=== PATIENT | male | born 1955 | race Caucasian/White ===

== ENCOUNTER 2017-10-21 11:29 | Day surgery (SDC) | payer OTHER ==
[~2017-10-21] VITALS: Ht 180.3 cm; Wt 137.6 kg
[~2017-10-21 11:29] MED LIST: ALPR.5; Omeprazole20 M1; SPIR25; Tenormin25 MG; ZESTRIL40 MG
[2017-10-21] MEDS ORDERED: Tizanidine HCl2 MG (11:55)
[2017-10-21] MEDS ORDERED: COMBIVENT RESPIM4 GM IH (11:55)
[2017-10-21] MEDS ORDERED: Adult Low Dose81 MG PO (11:56)
== END 2017-10-21 14:11 | disposition home or self-care (01) ==
LOC: ORSCSDS 11:29
PROVIDERS: Internal Medicine Gastroenterology
PROC: 0DBL8ZX Excision of Transverse Colon, Via Natural or Artificial Opening Endoscopic, Diagnostic (ICD-10-PCS; principal; 2017-10-21 13:00)
PROC: 0DBK8ZX Excision of Ascending Colon, Via Natural or Artificial Opening Endoscopic, Diagnostic (ICD-10-PCS; principal; 2017-10-21 13:00)
PROC: 0DB88ZX Excision of Small Intestine, Via Natural or Artificial Opening Endoscopic, Diagnostic (ICD-10-PCS; principal; 2017-10-21 13:00)
PROC: 0DB68ZX Excision of Stomach, Via Natural or Artificial Opening Endoscopic, Diagnostic (ICD-10-PCS; principal; 2017-10-21 13:00)
PROC: 0DB58ZX Excision of Esophagus, Via Natural or Artificial Opening Endoscopic, Diagnostic (ICD-10-PCS; principal; 2017-10-21 13:00)
DX: K92.1 Melena (principal); D12.2 Benign neoplasm of ascending colon; D12.3 Benign neoplasm of transverse colon; K29.80 Duodenitis without bleeding; K20.9 Esophagitis, unspecified; K29.70 Gastritis, unspecified, without bleeding; R10.11 Right upper quadrant pain; I10 Essential (primary) hypertension; I25.2 Old myocardial infarction; G47.33 Obstructive sleep apnea (adult) (pediatric); E66.01 Morbid (severe) obesity due to excess calories; Z68.41 Body mass index [BMI] 40.0-44.9, adult; Z79.899 Other long term (current) drug therapy
CPT/HCPCS: 88305; 88342; J7040; J7120

== ENCOUNTER 2018-02-07 19:53 | Inpatient (IN) | payer SELFPAY ==
[~2018-02-07] VITALS: Ht 180.3 cm; Wt 95.2 kg
[~2018-02-07 19:53] MED LIST changes: +Adult Low Dose81 MG PO; +COMBIVENT RESPIM4 GM IH; +Tizanidine HCl2 MG
[2018-02-07 20:15] LABS: BASOPHILS ABSOLUTE AUTO 0.06 K/mm3 (0.00-0.23); BASOPHILS PERCENT AUTO 1 % (0-2); EOSINOPHILS ABSOLUTE AUTO 0.23 K/mm3 (0.00-0.68); EOSINOPHILS PERCENT AUTO 2 % (0-6); Hematocrit 39.5 % (37.0-53.0); IMMATURE GRAN ABSOLUTE AUTO 0.03 K/mm3 (0.00-0.10); IMMATURE GRAN PERCENT AUTO 0 % (0-1); LYMPHOCYTES ABSOLUTE AUTO 3.48 K/mm3 (0.84-5.20); LYMPHOCYTES PERCENT AUTO 34 % (21-46); MONOCYTES ABSOLUTE AUTO 1.14 K/mm3 (0.16-1.47); MONOCYTES PERCENT AUTO 11 % (4-13); Mean Corpuscular HGB Conc 32.9 g/dL (31.5-36.5); Mean Corpuscular Volume 85 fL (80-100); Mean Platelet Volume 10.7 fL (9.1-12.4); NEUTROPHILS ABSOLUTE AUTO 5.28 K/mm3 (1.96-9.15); NEUTROPHILS PERCENT AUTO 52 % (41-73); Platelet Count 277 K/mm3 (150-400); RDW Coefficient Variation 14.4 % (11.7-14.2); RDW Standard Deviation 44.1 fL (35.1-46.3); Red Blood Cell Count 4.65 M/mm3 (4.30-5.90); White Blood Cell Count 10.22 K/mm3 (4.00-11.30)
[2018-02-07] MEDS ORDERED: ALBU3IS INH (20:21)
[2018-02-07] MEDS ORDERED: CLOP75 PO (20:22)
[2018-02-07] MEDS ORDERED: ATEN50 PO (20:22)
[2018-02-07] MEDS ORDERED: CYCL10 PO (20:22)
[2018-02-07] MEDS ORDERED: AMLO5 PO (20:22)
[2018-02-07] MEDS ORDERED: LISI20 PO (20:23)
[2018-02-07] MEDS ORDERED: SPIR25 PO (20:23)
[2018-02-07] MEDS ORDERED: Omeprazole20 M1 PO (20:23)
[2018-02-07] MEDS ORDERED: TAMS.4ER PO (20:23)
[2018-02-07] MEDS ORDERED: ASPI325 PO (20:23)
[2018-02-07] MEDS ORDERED: Fish Oil 10001000 MG PO (20:24)
[2018-02-07 20:27] LABS: International Normalized Ratio 0.98; Prothrombin Time Results 10.1 Sec (9.7-11.5)
[2018-02-07 20:34] LABS: Alanine Aminotransfer (ALT/SGP 102 U/L (12-78); Albumin, Blood 3.6 g/dL (3.4-5.0); Alk Phos 98 U/L (50-136); Anion Gap 9 mmol/L (6-16); Aspartate Aminotrans (AST/SGOT 68 U/L (12-37); Bilirubin, Total 0.4 mg/dL (0.1-1.0); Blood Urea Nitrogen 16 mg/dL (8-24); Bun/Creatinine Ratio 19.1 (12.0-20.0); CO2, Blood 24 mmol/L (21-32); Calcium, Blood 8.2 mg/dL (8.5-10.1); Chloride, Blood 107 mmol/L (98-108); Creatinine, Blood 0.84 mg/dL (0.60-1.20); Globulin, Blood 3.7 g/dL (2.2-4.0); Glomerular Filtration Rate >60 (60-); Glucose, Blood 168 mg/dL (70-99); Potassium, Blood 3.7 mmol/L (3.5-5.5); Sodium, Blood 140 mmol/L (136-145); Total Protein, Blood 7.3 g/dL (6.4-8.2)
[2018-02-07] MEDS ORDERED: Zofran Odt8 MG SL (22:04)
[2018-02-07] MEDS ORDERED: LOPE2C PO (22:04)
[2018-02-08] MEDS ORDERED: PROM25 PO (00:26)
[2018-02-08] MEDS ORDERED: ALPR1 PO (00:28)
[2018-02-08] MEDS ORDERED: NITR.4SL SL (00:31)
[2018-02-08 02:33] LABS: Source, Urine Clean Catch
[2018-02-08 02:51] LABS: Bilirubin, Urine Neg (Neg); Blood, Urine Neg (Neg); Glucose Qualitative, Urine Neg (Neg); Ketones, Urine Neg (Neg); Leukocyte Esterase, Urine Neg (Neg); Nitrite, Urine Neg (Neg); Protein, Urine Neg (Neg); Specific Gravity, Urine 1.015 (1.003-1.022); Urobilinogen, Urine NORM (Normal)
[2018-02-08 02:53] LABS: Appearance, Urine Clear (Clear); Color, Urine Yellow (P-Yellow)
[2018-02-08 05:25] LABS: BASOPHILS ABSOLUTE AUTO 0.09 K/mm3 (0.00-0.23); BASOPHILS PERCENT AUTO 1 % (0-2); EOSINOPHILS ABSOLUTE AUTO 0.27 K/mm3 (0.00-0.68); EOSINOPHILS PERCENT AUTO 3 % (0-6); Hematocrit 40.4 % (37.0-53.0); Hemoglobin 12.9 g/dL (13.5-17.5); IMMATURE GRAN ABSOLUTE AUTO 0.03 K/mm3 (0.00-0.10); IMMATURE GRAN PERCENT AUTO 0 % (0-1); LYMPHOCYTES ABSOLUTE AUTO 3.23 K/mm3 (0.84-5.20); LYMPHOCYTES PERCENT AUTO 38 % (21-46); MONOCYTES ABSOLUTE AUTO 0.76 K/mm3 (0.16-1.47); MONOCYTES PERCENT AUTO 9 % (4-13); Mean Corpuscular HGB 27.3 pg (26.0-34.0); Mean Corpuscular HGB Conc 31.9 g/dL (31.5-36.5); Mean Corpuscular Volume 86 fL (80-100); Mean Platelet Volume 10.7 fL (9.1-12.4); NEUTROPHILS ABSOLUTE AUTO 4.05 K/mm3 (1.96-9.15); NEUTROPHILS PERCENT AUTO 48 % (41-73); Platelet Count 245 K/mm3 (150-400); RDW Coefficient Variation 14.2 % (11.7-14.2); RDW Standard Deviation 44.9 fL (35.1-46.3); Red Blood Cell Count 4.72 M/mm3 (4.30-5.90); White Blood Cell Count 8.43 K/mm3 (4.00-11.30)
[2018-02-08 05:39] LABS: Anion Gap 11 mmol/L (6-16); Blood Urea Nitrogen 16 mg/dL (8-24); Bun/Creatinine Ratio 20.4 (12.0-20.0); CO2, Blood 25 mmol/L (21-32); Calcium, Blood 8.1 mg/dL (8.5-10.1); Chloride, Blood 106 mmol/L (98-108); Creatinine, Blood 0.78 mg/dL (0.60-1.20); Glomerular Filtration Rate >60 (60-); Glucose, Blood 109 mg/dL (70-99); Potassium, Blood 3.8 mmol/L (3.5-5.5); Sodium, Blood 142 mmol/L (136-145)
[2018-02-08] MEDS ORDERED: Esgic Tablet1 EACH PO (18:17)
== END 2018-02-08 18:45 | disposition home or self-care (01) | DRG 65 ==
LOC: ER 19:53 → MEDS 22:26
PROVIDERS: Emergency Medicine; Nurse Practitioner Acute Care
DX: I63.9 Cerebral infarction, unspecified (principal); G45.9 Transient cerebral ischemic attack, unspecified; G61.0 Guillain-Barre syndrome; N40.0 Benign prostatic hyperplasia without lower urinary tract symptoms; G43.109 Migraine with aura, not intractable, without status migrainosus; I25.10 Atherosclerotic heart disease of native coronary artery without angina pectoris; J44.9 Chronic obstructive pulmonary disease, unspecified; R20.0 Anesthesia of skin; I25.2 Old myocardial infarction; Z95.5 Presence of coronary angioplasty implant and graft; G47.30 Sleep apnea, unspecified; K75.81 Nonalcoholic steatohepatitis (NASH); Z79.02 Long term (current) use of antithrombotics/antiplatelets; Z77.22 Contact with and (suspected) exposure to environmental tobacco smoke (acute) (chronic); I45.10 Unspecified right bundle-branch block; R26.89 Other abnormalities of gait and mobility
CPT/HCPCS: 36415; 70450; 71046; 80048; 80053; 81003; 82607; 82746; 84443; 85025; 85610; 93005; 93010; 93306; 93880; 94760; 97161; 99285-25; G8978; G8979; G8980; J1650; J1885

== ENCOUNTER 2018-02-22 19:00 | Emergency (ER) | payer SELFPAY ==
[~2018-02-22] VITALS: Ht 180.3 cm; Wt 140.6 kg
[~2018-02-22 19:00] MED LIST changes: +ALBU3IS INH; +ALPR1 PO; +AMLO5 PO; +ASPI325 PO; +ATEN50 PO; +CLOP75 PO; +CYCL10 PO; +Esgic Tablet1 EACH PO; +Fish Oil 10001000 MG PO; +LISI20 PO; +LOPE2C PO; +NITR.4SL SL; +Omeprazole20 M1 PO; +PROM25 PO; +SPIR25 PO; +TAMS.4ER PO; +Zofran Odt8 MG SL
[2018-02-22 19:32] LABS: BASOPHILS ABSOLUTE AUTO 0.07 K/mm3 (0.00-0.23); BASOPHILS PERCENT AUTO 1 % (0-2); EOSINOPHILS ABSOLUTE AUTO 0.23 K/mm3 (0.00-0.68); EOSINOPHILS PERCENT AUTO 3 % (0-6); Hemoglobin 13.2 g/dL (13.5-17.5); IMMATURE GRAN ABSOLUTE AUTO 0.03 K/mm3 (0.00-0.10); IMMATURE GRAN PERCENT AUTO 0 % (0-1); LYMPHOCYTES ABSOLUTE AUTO 3.05 K/mm3 (0.84-5.20); LYMPHOCYTES PERCENT AUTO 33 % (21-46); MONOCYTES ABSOLUTE AUTO 0.89 K/mm3 (0.16-1.47); MONOCYTES PERCENT AUTO 10 % (4-13); Mean Corpuscular HGB 27.8 pg (26.0-34.0); Mean Corpuscular HGB Conc 32.2 g/dL (31.5-36.5); Mean Corpuscular Volume 86 fL (80-100); Mean Platelet Volume 10.3 fL (9.1-12.4); NEUTROPHILS ABSOLUTE AUTO 5.05 K/mm3 (1.96-9.15); NEUTROPHILS PERCENT AUTO 54 % (41-73); Platelet Count 237 K/mm3 (150-400); RDW Coefficient Variation 14.1 % (11.7-14.2); RDW Standard Deviation 44.7 fL (35.1-46.3); Red Blood Cell Count 4.75 M/mm3 (4.30-5.90); White Blood Cell Count 9.32 K/mm3 (4.00-11.30)
[2018-02-22 19:42] LABS: Alanine Aminotransfer (ALT/SGP 109 U/L (12-78); Albumin, Blood 3.6 g/dL (3.4-5.0); Alk Phos 100 U/L (50-136); Anion Gap 9 mmol/L (6-16); Aspartate Aminotrans (AST/SGOT 79 U/L (12-37); Bilirubin, Total 0.2 mg/dL (0.1-1.0); Blood Urea Nitrogen 14 mg/dL (8-24); Bun/Creatinine Ratio 16.1 (12.0-20.0); CO2, Blood 23 mmol/L (21-32); Calcium, Blood 7.9 mg/dL (8.5-10.1); Chloride, Blood 106 mmol/L (98-108); Creatinine, Blood 0.87 mg/dL (0.60-1.20); Globulin, Blood 3.6 g/dL (2.2-4.0); Glomerular Filtration Rate >60 (60-); Glucose, Blood 179 mg/dL (70-99); Potassium, Blood 3.5 mmol/L (3.5-5.5); Sodium, Blood 138 mmol/L (136-145); Total Protein, Blood 7.2 g/dL (6.4-8.2)
== END 2018-02-22 21:01 | disposition home or self-care (01) ==
LOC: ER 19:00
PROVIDERS: Internal Medicine
DX: G43.909 Migraine, unspecified, not intractable, without status migrainosus (principal); I10 Essential (primary) hypertension; J44.9 Chronic obstructive pulmonary disease, unspecified; Z88.1 Allergy status to other antibiotic agents; Z88.7 Allergy status to serum and vaccine; Z88.5 Allergy status to narcotic agent; Z88.8 Allergy status to other drugs, medicaments and biological substances; Z79.899 Other long term (current) drug therapy; Z79.01 Long term (current) use of anticoagulants
CPT/HCPCS: 70450; 71045; 80053; 81000; 82947; 85025; 93005; 93010; 96374; 99285-25; J0780; J1885

== ENCOUNTER 2018-07-02 13:16 | Day surgery (SDC) | payer OTHER ==
[~2018-07-02] VITALS: Ht 180.3 cm; Wt 139.5 kg
[~2018-07-02 13:16] MED LIST changes: +ALPR.5CR PO; +OMEPRAZOLE20 MG PO; +ZESTRIL40 MG PO; +Zanaflex2 M1
[2018-07-02] MEDS ORDERED: CYCL10 PO (14:27)
[2018-07-02] MEDS ORDERED: Aspirin EC81 MG PO (14:27)
[2018-07-02] MEDS ORDERED: POTA10T PO (14:27)
[2018-07-02] MEDS ORDERED: FURO20 PO (14:27)
[2018-07-02] MEDS ORDERED: CLOP75 PO (14:28)
== END 2018-07-02 15:35 | disposition home or self-care (01) ==
LOC: ORSCSDS 13:16
PROVIDERS: Ophthalmology
PROC: 08RJ3JZ Replacement of Right Lens with Synthetic Substitute, Percutaneous Approach (ICD-10-PCS; principal; 2018-07-02 15:00)
DX: H25.11 Age-related nuclear cataract, right eye (principal); H21.81 Floppy iris syndrome; I25.10 Atherosclerotic heart disease of native coronary artery without angina pectoris; G47.33 Obstructive sleep apnea (adult) (pediatric); J44.9 Chronic obstructive pulmonary disease, unspecified; Z86.73 Personal history of transient ischemic attack (TIA), and cerebral infarction without residual deficits; K21.9 Gastro-esophageal reflux disease without esophagitis; Z79.899 Other long term (current) drug therapy; Z79.82 Long term (current) use of aspirin; E66.01 Morbid (severe) obesity due to excess calories; Z68.41 Body mass index [BMI] 40.0-44.9, adult
CPT/HCPCS: J2001; J2250; J3010; J7120; V2632

== ENCOUNTER 2019-07-20 09:40 | Day surgery (SDC) | payer OTHER ==
[~2019-07-20] VITALS: Ht 180.3 cm; Wt 141.2 kg
[~2019-07-20 09:40] MED LIST changes: +ACET500 PO; +ALBU2.5V5 INH; +ALBU90OI6 INH; +ALPR.5 PO; +AMLOATOR PO; +ASPI81CH PO; +Aldactone25 MG PO; +Aspirin EC81 MG PO; +Atenolol50 MG PO; +FURO20 PO; +IRON PO; +NITR2.5ER PO; +OLOP.1OPSO BOTHEYES; +OMEP20ER PO; +POTA10T PO; +STIOLTO RESPIMAT4 GM INH; +STIOLTO RESPIMAT4 GM PO; +VITAMIN D31 ML PO; +Vitamin C100 M1 PO; +ZESTRIL40 M1 PO
[2019-07-20] MEDS ORDERED: ENOX80I SC (11:05)
--- NOTE | 2019-07-20 11:19 | NUR ---
Ambulatory in Day Surgery. Surgical site prepped with 2% Chlorhexidine cloth wipe. History, Chart, Medications and Allergies reviewed before start of procedure.Lungs clear T/O to Auscultation. Patient confirms NPO status and agrees with scheduled surgery. Pre-Op teaching done. Pt verbalizes understanding. Patient States Post-Procedure ride home has been arranged. Patient reports completing Chlorhexadine shower X2 prior to admission to hospital.
--- NOTE | 2019-07-20 18:26 | NUR ---
RECIEVED REPORT FROM KYLAH GEORGES AT 1820. PATIENT TO TRANSFER TO ROOM 221.
--- NOTE | 2019-07-21 06:20 | NUR ---
SHIFT SUMMARY HAS RESTED THIS SHIFT. PAIN MANAGED WITH PRN DILAUDID GIVEN X1 THIS SHIFT. LAP SITE DRESSINGS ARE C/D/I, HAS BEEN ABLE TO AMBULATE TO BATHROOM WITH STANDBY ASSIST. DENIES FURTHER NEEDS OR WANTS AT THIS TIME. SAFETY MEASURES IN PLACE. WILL GIVE HAND OFF TO ONCOMING SHIFT USING SBAR DURING BEDSIDE REPORT.
--- NOTE | 2019-07-21 17:04 | NUR ---
SHIFT SUMMARY PT A&OX4, VSS, POD1 CHIOL. PAIN TREATED WITH 0.5 DILAUDID X1; PT STAYING FOR PAIN MANAGEMENT R/T INABILITY TO TAKE ORAL OPIATES. ESTEFANÍA PO, DENIES N&V. AMBULATING HALLWAYS. VOIDING. REP PASSING FLATUS, DENIES BM. WILL REPORT TO ONCOMING NOC RN.
--- NOTE | 2019-07-22 04:13 | NUR ---
SHIFT SUMMARY PT IS A/O X4 AND IND. AMBULATES FREQUENTLY; HAS AMBULATED MULT TIMES IN HALLWAY. LAP SITES CDI. PAIN MANAGED WITH 0.5MG DILAUDED PER ORDERS. PT HAS BEEN RESTING QUIETLY DURING THE NIGHT. TOLERATING PO INTAKE AND VOIDING. ASSISTED WITH ADL'S PRN.
--- NOTE | 2019-07-22 11:22 | NUR ---
DISCHARGE SUMMARY PT WALKED OFF FLOOR WITH ALL PERSONAL POSSESSIONS INCLUDING DC PACKET. DC INSTRUCTIONS PROVIDED. PT REP UNDERSTANDING THOSE INSTRUCTIONS INCLUDING FU WITH SURGEON X2WKS, LEAVE STERIS IN PLACE, OK TO SHOWER, NO LIFTING GREATER THAN 10 LBS. 2 IVS DC'D.
[2019-07-23] MEDS ORDERED: METPRE4DP PO (10:14)
== END 2019-07-22 11:18 | disposition home or self-care (01) ==
LOC: ORSCMMR 09:40 → ORD 11:30 → ORSCMMR 11:30 → SURS 18:30 → ORSCMMR 07-22 11:18
PROVIDERS: Surgery
PROC: 0DNU4ZZ Release Omentum, Percutaneous Endoscopic Approach (ICD-10-PCS; principal; 2019-07-20 11:30)
PROC: 8E0W4CZ Robotic Assisted Procedure of Trunk Region, Percutaneous Endoscopic Approach (ICD-10-PCS; principal; 2019-07-20 11:30)
PROC: 0FB04ZX Excision of Liver, Percutaneous Endoscopic Approach, Diagnostic (ICD-10-PCS; principal; 2019-07-20 11:30)
DX: R10.11 Right upper quadrant pain (principal); K75.81 Nonalcoholic steatohepatitis (NASH); K66.0 Peritoneal adhesions (postprocedural) (postinfection); I10 Essential (primary) hypertension; I25.2 Old myocardial infarction; J44.9 Chronic obstructive pulmonary disease, unspecified; G47.33 Obstructive sleep apnea (adult) (pediatric); K21.9 Gastro-esophageal reflux disease without esophagitis; E66.01 Morbid (severe) obesity due to excess calories; Z68.41 Body mass index [BMI] 40.0-44.9, adult; F31.9 Bipolar disorder, unspecified; Z86.73 Personal history of transient ischemic attack (TIA), and cerebral infarction without residual deficits; Z79.899 Other long term (current) drug therapy; Z79.01 Long term (current) use of anticoagulants
CPT/HCPCS: 47379; 49329; S2900; 88307; 88313; J1100; J1170; J1650; J1885; J2250; J2370; J2405; J2704; J2710; J3010; J7120

== ENCOUNTER 2019-11-25 12:48 | Inpatient (IN) | payer OTHER ==
[~2019-11-25] VITALS: Ht 180.3 cm; Wt 140.2 kg
[~2019-11-25 12:48] MED LIST changes: -ALBU90OI6 INH; -ASPI81CH PO; -Aldactone25 MG PO; -Atenolol50 MG PO; +ENOX80I SC; -IRON PO; +METPRE4DP PO; -NITR2.5ER PO; -OMEP20ER PO; -STIOLTO RESPIMAT4 GM INH; -VITAMIN D31 ML PO; -Vitamin C100 M1 PO; -ZESTRIL40 M1 PO
[2019-11-25 13:12] LABS: BASOPHILS ABSOLUTE AUTO 0.08 K/mm3 (0.00-0.23); BASOPHILS PERCENT AUTO 1 % (0-2); EOSINOPHILS ABSOLUTE AUTO 0.41 K/mm3 (0.00-0.68); EOSINOPHILS PERCENT AUTO 4 % (0-6); Hematocrit 42.5 % (37.0-53.0); IMMATURE GRAN ABSOLUTE AUTO 0.05 K/mm3 (0.00-0.10); IMMATURE GRAN PERCENT AUTO 1 % (0-1); LYMPHOCYTES PERCENT AUTO 29 % (21-46); MONOCYTES ABSOLUTE AUTO 1.04 K/mm3 (0.16-1.47); MONOCYTES PERCENT AUTO 10 % (4-13); Mean Corpuscular HGB 29.6 pg (26.0-34.0); Mean Corpuscular HGB Conc 32.9 g/dL (31.5-36.5); Mean Corpuscular Volume 90 fL (80-100); Mean Platelet Volume 10.3 fL (9.1-12.4); NEUTROPHILS ABSOLUTE AUTO 5.87 K/mm3 (1.96-9.15); NEUTROPHILS PERCENT AUTO 56 % (41-73); Platelet Count 271 K/mm3 (150-400); RDW Coefficient Variation 13.5 % (11.7-14.2); RDW Standard Deviation 44.4 fL (35.1-46.3); Red Blood Cell Count 4.73 M/mm3 (4.30-5.90); White Blood Cell Count 10.55 K/mm3 (4.00-11.30)
[2019-11-25 13:25] LABS: Alanine Aminotransfer (ALT/SGP 105 U/L (12-78); Albumin, Blood 3.6 g/dL (3.4-5.0); Albumin/Globulin Ratio 0.9 (0.8-1.8); Alk Phos 97 U/L (50-136); Anion Gap 7 mmol/L (6-16); Aspartate Aminotrans (AST/SGOT 84 U/L (12-37); Bilirubin, Total 0.4 mg/dL (0.1-1.0); Blood Urea Nitrogen 16 mg/dL (8-24); Bun/Creatinine Ratio 17.7 (12.0-20.0); CO2, Blood 24 mmol/L (21-32); Calcium, Blood 8.6 mg/dL (8.5-10.1); Chloride, Blood 109 mmol/L (98-108); Globulin, Blood 3.8 g/dL (2.2-4.0); Glomerular Filtration Rate >60 (60-); Glucose, Blood 130 mg/dL (70-99); Potassium, Blood 4.1 mmol/L (3.5-5.5); Sodium, Blood 140 mmol/L (136-145); Total Protein, Blood 7.4 g/dL (6.4-8.2); Troponin I <0.015 ng/mL (0.000-0.040)
[2019-11-25 13:31] LABS: International Normalized Ratio 0.96; Prothrombin Time Results 10.3 Sec (9.7-11.5)
[2019-11-25] MEDS ORDERED: ASCO500 PO (15:14)
[2019-11-25] MEDS ORDERED: ALBU90OI6 INH (15:14)
[2019-11-25] MEDS ORDERED: ALBU2.5V5 NEB (15:15)
[2019-11-25] MEDS ORDERED: Aspir 8181 MG PO (15:15)
[2019-11-25] MEDS ORDERED: CLOP75 PO (15:17)
[2019-11-25] MEDS ORDERED: Atenolol50 MG PO (15:17)
[2019-11-25] MEDS ORDERED: [UNRECOGNIZED DRUG - CODE] PO (15:19)
[2019-11-25] MEDS ORDERED: CYCL10 PO (15:20)
[2019-11-25] MEDS ORDERED: DIAZ5 PO (15:21)
[2019-11-25] MEDS ORDERED: FEROSUL325 M1 PO (15:21)
[2019-11-25] MEDS ORDERED: ZESTRIL40 M1 PO (15:22)
[2019-11-25] MEDS ORDERED: FURO20 PO (15:22)
[2019-11-25] MEDS ORDERED: OMEP20ER PO (15:23)
[2019-11-25] MEDS ORDERED: Aldactone25 MG PO (15:23)
[2019-11-25] MEDS ORDERED: NITR.4SL SL (15:24)
[2019-11-25] MEDS ORDERED: STIOLTO RESPIMAT4 G1 INH (15:24)
[2019-11-25] MEDS ORDERED: POTA10T PO (15:25)
[2019-11-25] MEDS ORDERED: FISH OIL 1,001000 M1 PO (16:07)
[2019-11-25] MEDS ORDERED: Vitamin B Comple1 EA PO (16:08)
--- NOTE | 2019-11-25 18:37 | NUR ---
SHIFT SUMMARY PT AXO PLEASANT AND COOPERATIVE WITH CARE THOUGH ANXIOUS AT TIMES. PT ADMITTED THIS SHIFT. VSS. PT UP WITH STEADY GAIT TO BATHROOM TO VOID. PT COMPLAINED OF CHEST PAIN 4/10, UNCHANGED SINCE ARRIVAL. PT ON TELE RUNNING SINUS RHYTHM WITH BBB AND PVC AT 74 PER [employer] OPERATOR HELPERJUAN AT THIS TIME. BED IN LOW POSITION, CALL LIGHT WITHIN REACH. PT ORIENTED TO ROOM AND EDUCATED ABOUT SQUEEZER OPERATOR, PAIN MANAGEMENT AND FALL PREVENTION.
[2019-11-25 21:33] LABS: CPK Creatine Kinase 333 U/L (39-308); Creatine Kinase MB Index 0.6 (0.0-4.0); Troponin I <0.015 ng/mL (0.000-0.040)
--- NOTE | 2019-11-25 22:20 | NUR ---
CK CK 333 WITH CARDIAC WORKUP THIS EVENING. TROPONIN AND CKMB WITHIN NORMAL LIMITS. PT SLEEPING IN BED WITHOUT DISTRESS. HOUSEKEEPING ASSISTANT NOTIFIED OF LAB RESULTS. STATES NO NEED TO NOTIFY PROVIDER AT THIS TIME OF THOSE RESULTS.
--- NOTE | 2019-11-26 05:02 | NUR ---
SHIFT SUMMARY NO ACUTE CHANGES TO REPORT THIS SHIFT. PT HAD SOME CHEST PAIN AT THE BEGINNING OF THE SHIFT THAT WAS RELEIVED WITH IV FENTANYL. 4/5 (0-10). PT HAS NOT HAD ANY FURTHER CHEST PAIN SINCE THAT TIME. PT HAS DENIED SOB, N/V. SKIN IS WARM AND DRY. SERIAL TROPNIN'S HAVE BEEN NEGATIVE, VITALS STABLE. PT INDEPENDENT IN ROOM. PLAN IS FOR STRESS TEST TODAY. BED IN LOWEST POSITION, CALL LIGHT WITHIN REACH. WILL CONTINUE TO MONITOR AND REPORT TO ONCOMING RN.
[2019-11-26 05:22] LABS: Hematocrit 40.7 % (37.0-53.0); Hemoglobin 13.3 g/dL (13.5-17.5); Mean Corpuscular HGB 29.6 pg (26.0-34.0); Mean Corpuscular HGB Conc 32.7 g/dL (31.5-36.5); Mean Corpuscular Volume 91 fL (80-100); Mean Platelet Volume 10.1 fL (9.1-12.4); Platelet Count 231 K/mm3 (150-400); RDW Coefficient Variation 13.6 % (11.7-14.2); RDW Standard Deviation 45.7 fL (35.1-46.3); Red Blood Cell Count 4.49 M/mm3 (4.30-5.90); White Blood Cell Count 10.52 K/mm3 (4.00-11.30)
[2019-11-26 05:43] LABS: Alanine Aminotransfer (ALT/SGP 91 U/L (12-78); Albumin, Blood 3.3 g/dL (3.4-5.0); Alk Phos 71 U/L (50-136); Anion Gap 6 mmol/L (6-16); Aspartate Aminotrans (AST/SGOT 61 U/L (12-37); Bilirubin, Total 0.5 mg/dL (0.1-1.0); Blood Urea Nitrogen 16 mg/dL (8-24); CHOL/HDL RATIO 8.5; CO2, Blood 28 mmol/L (21-32); CPK Creatine Kinase 291 U/L (39-308); Calcium, Blood 8.4 mg/dL (8.5-10.1); Chloride, Blood 105 mmol/L (98-108); Cholesterol 196 mg/dL (50-200); Creatine Kinase MB 1.4 ng/mL (0.0-3.6); Creatine Kinase MB Index 0.5 (0.0-4.0); Creatinine, Blood 0.89 mg/dL (0.60-1.20); Globulin, Blood 3.4 g/dL (2.2-4.0); Glomerular Filtration Rate >60 (60-); Glucose, Blood 118 mg/dL (70-99); HDL Cholesterol 23 mg/dL (>39); LDL/HDL RATIO 5.6; Low Density Lipoprotein Chol 130 mg/dL (0-110); Sodium, Blood 139 mmol/L (136-145); Total Protein, Blood 6.7 g/dL (6.4-8.2); Triglycerides 217 mg/dL (30-160); Troponin I <0.015 ng/mL (0.000-0.040); Very Low Density Lipoprot Chol 43 mg/dL (6-32)
--- NOTE | 2019-11-26 17:35 | NUR ---
PT HAS HAD NO COMPLAINTS OF PAIN OR SOB. PT HAS HAD ANXIETY OVER DESIRED TREATMENTS. DOCTOR HAS BEEN IN AND GONE OVER AT GREAT LENGTH THE CONDITION OF THE PATIENTS AND THE TESTS THAT ARE BEING RUN. PT IS ALERT AND ORIENTED, HE IS INDEPENDENT IN THE ROOM. CALL LIGHT WITHIN REACH.
--- NOTE | 2019-11-27 04:14 | NUR ---
SHIFT SUMMARY ASSUMED CARE OF PT AT 1900. PT IS A/OX4, DENIES N/T IN EXTREMITES. HEART SOUNDS REGULAR, TELE SHOWS SINUS WITH BBB @ 72, DENIES CP. LUNG SOUNDS CLEAR, DENIES SOB. PT IS INDEPENDENT IN HIS ROOM. PT HAS BEEN NPO EXCEPT FOR WATER AND MEDICATION SINCE 2099 YESTERDAY FOR HIS STRESS TEST THIS AM. NO ACUTE EVENTS DURING THE NIGHT. PT SLEPT T/O THE NIGHT. CALL LIGHT IN REACH, BED IN LOWEST POSITION, WILL CONTINUE TO MONITOR UNTIL DAYSHIFT NURSE ARRIVES.
--- NOTE | 2019-11-27 17:32 | NUR ---
SHIFT SUMMARY: PT A&O; CALM AND COOPERATIVE WITH CARE; INDEPENDENT IN ROOM. STRESS TEST PART 2 TODAY; ABNORMAL RESULTS; CARDIOLOGY CONSULT THIS SHIFT; ANGIOGRAM PLANNED FOR TOMORROW 11/27; PATIENT TO BE NPO AFTER MIDNIGHT. MEDICATED FOR PAIN PER EMAR. TELE IN PLACE; SR ibarra BBB @ 83. WCTM.
--- NOTE | 2019-11-28 05:06 | NUR ---
11/28/19 0500 PT NPO SINCE MIDNIGHT. CPAP APPLIED BY PT FROM HOME MACHINE AT ABOUT 10:30 PM. HEART MONITOR STABLE AT SR IN THE 80'S. MEDICATED ONCE FOR HEADACHE THIS SHIFT.
--- NOTE | 2019-11-28 11:39 | NUR ---
Echocardiogram completed.
[2019-11-28] MEDS ORDERED: CARV25 PO (16:38)
[2019-11-28] MEDS ORDERED: METF500 PO (16:38)
--- NOTE | 2019-11-28 19:39 | NUR ---
TRANSFER NOTE RECEIVED BEDSIDE REPORT FROM [employer] SALES ENGINEER, PT TO ROOM AT APPROX 0930. RIGHT RADIAL SITE WITH TR BAND AND ARM BOARD IN PLACE; NO BLEEDING, BRUISING OR HEMATOMA NOTED. TR BAND RECOVERED PER ORDERS AND REMOVED AT 1705 AND TEGADERM PLACED. PT A&Ox4; CALM AND COOPERATIVE WITH CARE. PT DENIES PAIN, CHEST PAIN/PRESSURE AND NAUSEA. PT REPORTS SOB WITH EXERTION, SPO2 >90% ON RA. VSS; NO OTHER ACUTE CHANGES NOTED DURING SHIFT. PT EDUCATED ON DISCHARGE INSTRUCTIONS, FOLLOW UP APPOINTMENT AND MEDICATIONS. [facility]; PT STATES HE PLANS ON PICKING UP THE MEDICATION IN THE AM. PT QUESTIONING MEDCATIONS CHANGES FROM ATENOLOL TO COREG; EDUCATED PT ON THE MEDICATIONS AND WHY THE CHANGES. PT EDUCATED ON STENT CARDS AND TO HAVE THEM IN HIS WALLET. PT LEFT ROOM VIA WHEELCHAIR AT 1725. PT STABLE UPON DISCHARGE.
[2019-12-03] MEDS ORDERED: PANT40 PO (16:24)
[2019-12-04] MEDS ORDERED: ACET325 PO (11:27)
[2020-01-23] MEDS ORDERED: Bactrim Ds Tab1 EACH PO (13:51)
== END 2019-11-28 17:30 | disposition home or self-care (01) | DRG 247 ==
LOC: ER 12:48 → MEDS 14:52 → ER 14:52 → MEDS 14:53 → PCU 11-28 09:30
PROVIDERS: Emergency Medicine; ADMIT Internal Medicine
PROC: 5A09357 Assistance with Respiratory Ventilation, Less than 24 Consecutive Hours, Continuous Positive Airway Pressure (ICD-10-PCS; 2019-11-27)
PROC: 027136Z Dilation of Coronary Artery, Two Arteries with Three Drug-eluting Intraluminal Devices, Percutaneous Approach (ICD-10-PCS; principal; 2019-11-28)
PROC: 4A023N7 Measurement of Cardiac Sampling and Pressure, Left Heart, Percutaneous Approach (ICD-10-PCS; 2019-11-28)
PROC: B2111ZZ Fluoroscopy of Multiple Coronary Arteries using Low Osmolar Contrast (ICD-10-PCS; 2019-11-28)
DX: I25.110 Atherosclerotic heart disease of native coronary artery with unstable angina pectoris (principal); I50.20 Unspecified systolic (congestive) heart failure; Z68.41 Body mass index [BMI] 40.0-44.9, adult; R94.39 Abnormal result of other cardiovascular function study; I25.2 Old myocardial infarction; K21.9 Gastro-esophageal reflux disease without esophagitis; E78.5 Hyperlipidemia, unspecified; J44.9 Chronic obstructive pulmonary disease, unspecified; G47.33 Obstructive sleep apnea (adult) (pediatric); I11.0 Hypertensive heart disease with heart failure; D50.9 Iron deficiency anemia, unspecified; E66.01 Morbid (severe) obesity due to excess calories; F43.10 Post-traumatic stress disorder, unspecified; F31.9 Bipolar disorder, unspecified; Z79.02 Long term (current) use of antithrombotics/antiplatelets; Z95.5 Presence of coronary angioplasty implant and graft; Z79.82 Long term (current) use of aspirin; Z79.899 Other long term (current) drug therapy; F41.9 Anxiety disorder, unspecified; Z88.1 Allergy status to other antibiotic agents; Z88.5 Allergy status to narcotic agent; Z88.7 Allergy status to serum and vaccine; Z88.8 Allergy status to other drugs, medicaments and biological substances
CPT/HCPCS: 36415; 71045; 78452; 80053; 80061; 82550; 82553; 83036; 83880; 84484; 85025; 85027; 85347; 85610; 85730; 93005; 93010; 93017; 93306; 93458; 94640; 94760; 94762; 96372; 96374; 96376; 99152; 99153; 99285-25; A9270; A9270-GY; A9500; C1725; C1769; C1874; C1887; C1894; C9600; C9601; G0378; J1644; J1650; J1940; J2060; J2250; J2785; J3010; J7030; Q9967

== ENCOUNTER 2021-11-15 06:50 | Day surgery (SDC) | payer OTHER ==
[~2021-11-15] VITALS: Ht 180.3 cm; Wt 136.4 kg
[~2021-11-15 06:50] MED LIST changes: +ACET325 PO; +ALBU2.5V5 NEB; +ALBU90OI6 INH; +ASCO500 PO; +Aldactone25 MG PO; +Aspir 8181 MG PO; +Atenolol50 MG PO; +BUME1 PO; +Bactrim Ds Tab1 EACH PO; +CARV25 PO; +DIAZ5 PO; +FEROSUL325 M1 PO; +FISH OIL 1,001000 M1 PO; +FISH OIL PO; +METF500 PO; +OMEP20ER PO; +PANT40 PO; +STIOLTO RESPIMAT4 G1 INH; +UBID10 PO; +Vitamin B Comple1 EA PO; +ZESTRIL40 M1 PO; +[UNRECOGNIZED DRUG - CODE] PO
[2021-11-15] MEDS ORDERED: AMLO5 PO (10:31)
[2021-11-15] MEDS ORDERED: EZET10 PO (10:31)
--- NOTE | 2021-11-15 12:00 | NUR ---
DISCHARGE INSTRUCTIONS REVIEWED WITH PT. PT VERBALIZES UNDERSTANDING OF INSTRUCTIONS.
--- NOTE | 2021-11-15 12:05 | NUR ---
PT UP TO BATHROOM. RADIAL SITE STABLE.
--- NOTE | 2021-11-15 12:15 | NUR ---
TR BAND REMOVED AND CLOTH DOT PLACED. RADIAL SITE STABLE. SALINE LOCK REMOVED WITH CATHETER INTACT. PT TO PRIVATE VEHICLE PER W/C WITH ONE STAFF.
== END 2021-11-15 12:00 | disposition home or self-care (01) ==
LOC: MHTC 06:50
DX: I25.118 Atherosclerotic heart disease of native coronary artery with other forms of angina pectoris (principal); R06.00 Dyspnea, unspecified; E11.9 Type 2 diabetes mellitus without complications; E66.9 Obesity, unspecified; I10 Essential (primary) hypertension; E78.5 Hyperlipidemia, unspecified; I45.10 Unspecified right bundle-branch block; G47.33 Obstructive sleep apnea (adult) (pediatric); Z88.1 Allergy status to other antibiotic agents; Z88.8 Allergy status to other drugs, medicaments and biological substances; Z88.7 Allergy status to serum and vaccine
CPT/HCPCS: 76937; 93458; 99152; 99153; C1769; C1887; C1894; J1644; J2250; J3010; J7030; J7040; Q9967

== ENCOUNTER 2021-12-18 08:52 | Day surgery (SDC) | payer OTHER ==
[~2021-12-18] VITALS: Ht 180.3 cm; Wt 127.3 kg
[~2021-12-18 08:52] MED LIST changes: +EZET10 PO
== END 2021-12-18 11:38 | disposition home or self-care (01) ==
LOC: ORSCSDS 08:52
PROVIDERS: Student in an Organized Health Care Education/Training Program
PROC: 0DBL8ZX Excision of Transverse Colon, Via Natural or Artificial Opening Endoscopic, Diagnostic (ICD-10-PCS; principal; 2021-12-18 10:15)
PROC: 0DBK8ZX Excision of Ascending Colon, Via Natural or Artificial Opening Endoscopic, Diagnostic (ICD-10-PCS; principal; 2021-12-18 10:15)
PROC: 0DBN8ZX Excision of Sigmoid Colon, Via Natural or Artificial Opening Endoscopic, Diagnostic (ICD-10-PCS; principal; 2021-12-18 10:15)
PROC: 0DBM8ZX Excision of Descending Colon, Via Natural or Artificial Opening Endoscopic, Diagnostic (ICD-10-PCS; principal; 2021-12-18 10:15)
DX: Z12.11 Encounter for screening for malignant neoplasm of colon (principal); D12.2 Benign neoplasm of ascending colon; D12.3 Benign neoplasm of transverse colon; D12.4 Benign neoplasm of descending colon; D12.5 Benign neoplasm of sigmoid colon; K64.8 Other hemorrhoids; K57.51 Diverticulosis of both small and large intestine without perforation or abscess with bleeding; Z86.010 Personal history of colon polyps; I25.10 Atherosclerotic heart disease of native coronary artery without angina pectoris; I10 Essential (primary) hypertension; E78.5 Hyperlipidemia, unspecified; K76.0 Fatty (change of) liver, not elsewhere classified; K21.9 Gastro-esophageal reflux disease without esophagitis; G47.33 Obstructive sleep apnea (adult) (pediatric); J44.9 Chronic obstructive pulmonary disease, unspecified; F31.9 Bipolar disorder, unspecified; E66.01 Morbid (severe) obesity due to excess calories; Z68.39 Body mass index [BMI] 39.0-39.9, adult; Z79.01 Long term (current) use of anticoagulants; Z79.82 Long term (current) use of aspirin; Z79.899 Other long term (current) drug therapy
CPT/HCPCS: 88305; J2704; J7120

== ENCOUNTER 2024-07-19 07:01 | Day surgery (SDC) | payer OTHER ==
[~2024-07-19] VITALS: Ht 180.3 cm; Wt 144.7 kg
[2024-07-19] MEDS ORDERED: PRALUENT P75 MG/1 ML SC (07:25)
[2024-07-19] MEDS ORDERED: NS 250 ML IV ONE (07:28)
[2024-07-19] MEDS ORDERED: XARELTO2.5 M1 PO (07:28)
[2024-07-19] MEDS ORDERED: Heparin Sodium 1000 Units/ML 10ML MDV ONE ×3 (07:28→09:26)
[2024-07-19] MEDS ORDERED: Verapamil HCL 2.5 MG/ML 2ML Injection ONE (07:28)
[2024-07-19] MEDS ORDERED: NS 1,000 ML IV ONE ×2 (07:28→07:52)
[2024-07-19] MEDS ORDERED: Nitroglycerin 2 MG/20 ML BTL ONE (07:29)
[2024-07-19 07:45] VITALS: BP 133/88
[2024-07-19] MEDS ORDERED: FentaNYL Citrate 50 MCG/ML 2 ML Injection ONE ×2 (07:52→09:00)
[2024-07-19] MEDS ORDERED: Midazolam HCl 1MG / ML 2ML Vial ONE ×2 (07:52→09:00)
[2024-07-19] MEDS ORDERED: Aspirin 81 MG Chew ONE (08:10)
[2024-07-19] MEDS ORDERED: Ketorolac Tromethamine 30mg Vial ONE (09:14)
[2024-07-19] MEDS ORDERED: Clopidogrel Bisulfate 300 MG Cap ONE (09:18)
--- NOTE | 2024-07-19 10:00 | NUR ---
PT. BACK TO RECOVERY ROOM IN RECLINER, ALERT AND ORIENTED. SALINE LOCKED. PT HAS TR BAND IN PLACE TO RIGHT RADIAL WITH 12CC OF AIR. VSS UPON ARRIVAL TO RECOVERY. PT. PROVIDED WITH COFFEE AT THIS TIME. CALL LIGHT IN REACH. PT CALLED TO UPDATE ON PT RETURN TO UNIT AND PLAN OF DISCHARGE.
[2024-07-19 10:05] VITALS: BP 128/70
[2024-07-19 10:15] VITALS: BP 113/72
[2024-07-19 10:30] VITALS: BP 111/66
[2024-07-19 10:45] VITALS: BP 125/81
[2024-07-19 11:00] VITALS: BP 118/72
--- NOTE | 2024-07-19 11:00 | NUR ---
Dr. Villanueva in to talk with pt regarding results from procedure and plan moving forward. Pt Tr band deflation intiated.
--- NOTE | 2024-07-19 11:15 | NUR ---
TR band deflated w/o complication at this time. Pt provided with snack and updated on time frame for discharge.
--- NOTE | 2024-07-19 11:45 | NUR ---
pt discharge instructions reviewed in detail. pt. iv dcd catheter intact. pt. up to ambulate in recovery room. Able to get self dressed with out difficulty. TR band removed, site cleaned and cloth dot placed over site. Pt. arm board placed to arm. No oozing or swelling noted. pt. vss remain stable. pt to pick pt up. all belongings gathered and discharge volunteer called to assist with wheelchair transport to exit.
== END 2024-07-19 12:42 | disposition home or self-care (01) ==
LOC: MHTC 07:01
DX: I25.118 Atherosclerotic heart disease of native coronary artery with other forms of angina pectoris (principal); G47.33 Obstructive sleep apnea (adult) (pediatric); E11.9 Type 2 diabetes mellitus without complications; I11.0 Hypertensive heart disease with heart failure; I50.30 Unspecified diastolic (congestive) heart failure; F31.9 Bipolar disorder, unspecified; E66.9 Obesity, unspecified; K21.9 Gastro-esophageal reflux disease without esophagitis; E78.5 Hyperlipidemia, unspecified
CPT/HCPCS: 76937; 85347; 92920; 92978; 93458; 93571; 99152; 99153; A9270; C1725; C1753; C1769; C1887; C1894; J1644; J1885; J2250; J3010; J7030; J7050; Q9967

== ENCOUNTER 2025-03-31 13:17 | Emergency (ER) | payer OTHER ==
[~2025-03-31] VITALS: Ht 180.3 cm; Wt 133.8 kg
[~2025-03-31 13:17] MED LIST changes: +PRALUENT P75 MG/1 ML SC; +XARELTO2.5 M1 PO
[2025-03-31 13:42] LABS: BASOPHILS ABSOLUTE AUTO 0.08 K/mm3 (0.00-0.23); BASOPHILS PERCENT AUTO 1 % (0-2); EOSINOPHILS ABSOLUTE AUTO 0.21 K/mm3 (0.00-0.68); EOSINOPHILS PERCENT AUTO 2 % (0-6); Hematocrit 41.0 % (37.0-53.0); Hemoglobin 13.8 g/dL (13.5-17.5); IMMATURE GRAN ABSOLUTE AUTO 0.03 K/mm3 (0.00-0.10); IMMATURE GRAN PERCENT AUTO 0 % (0-1); LYMPHOCYTES ABSOLUTE AUTO 2.95 K/mm3 (0.84-5.20); LYMPHOCYTES PERCENT AUTO 33 % (21-46); MONOCYTES ABSOLUTE AUTO 0.94 K/mm3 (0.16-1.47); MONOCYTES PERCENT AUTO 10 % (4-13); Mean Corpuscular HGB Conc 33.7 g/dL (31.5-36.5); Mean Corpuscular Volume 87 fL (80-100); NEUTROPHILS ABSOLUTE AUTO 4.85 K/mm3 (1.96-9.15); NEUTROPHILS PERCENT AUTO 54 % (41-73); NRBC ABSOLUTE 0.00 K/mm3 (0.00-0.02); NRBC Auto 0.0 /100 WBC (0.0-0.2); Platelet Count 260 K/mm3 (150-400); RDW Coefficient Variation 13.4 % (11.7-14.2); RDW Standard Deviation 43.3 fL (35.1-46.3)
[2025-03-31 14:03] LABS: Alanine Aminotransfer (ALT/SGP 90.0 U/L (12-78); Albumin, Blood 3.8 g/dL (3.4-5.0); Albumin/Globulin Ratio 1.1 (0.8-1.8); Anion Gap 10.0 mmol/L (3-11); Aspartate Aminotrans (AST/SGOT 67.0 U/L (12-37); Bilirubin, Total 0.6 mg/dL (0.1-1.0); Blood Urea Nitrogen 14.0 mg/dL (8-24); CO2, Blood 27.0 mmol/L (21-32); Calcium, Blood 9.0 mg/dL (8.5-10.1); Chloride, Blood 104.0 mmol/L (98-108); Creatinine, Blood 1.01 mg/dL (0.60-1.20); Globulin, Blood 3.6 g/dL (2.2-4.0); Glucose, Blood 141.0 mg/dL (70-99); Magnesium, Blood 1.9 mg/dL (1.6-2.4); Potassium, Blood 3.8 mmol/L (3.5-5.5); Sodium, Blood 137.0 mmol/L (136-145); Total Protein, Blood 7.4 g/dL (6.4-8.2)
[2025-03-31 16:45] VITALS: BP 137/83
== END 2025-03-31 16:53 | disposition home or self-care (01) ==
LOC: ER 13:17
PROVIDERS: Emergency Medicine
DX: I25.119 Atherosclerotic heart disease of native coronary artery with unspecified angina pectoris (principal); I10 Essential (primary) hypertension; J44.9 Chronic obstructive pulmonary disease, unspecified; K21.9 Gastro-esophageal reflux disease without esophagitis; E78.5 Hyperlipidemia, unspecified; G47.33 Obstructive sleep apnea (adult) (pediatric); Z88.7 Allergy status to serum and vaccine; Z88.2 Allergy status to sulfonamides; Z88.6 Allergy status to analgesic agent; Z88.5 Allergy status to narcotic agent; Z88.1 Allergy status to other antibiotic agents; Z88.8 Allergy status to other drugs, medicaments and biological substances; Z79.82 Long term (current) use of aspirin; Z79.01 Long term (current) use of anticoagulants; Z79.899 Other long term (current) drug therapy
CPT/HCPCS: 71045; 80053; 83735; 83880; 84484; 85025; 93005; 93010; 99285-25